=== PATIENT | male | born 2000 | race Two or more races ===

== ENCOUNTER 2021-12-11 14:07 | Outpatient (REF) | payer OTHER, SELFPAY ==
[2021-12-11 14:44] LABS: COVID-19 Test Positive (Negative); IDNOW Serial# 08D9AD1C
== END 2021-12-11 14:08 | disposition home or self-care (01) ==
LOC: HO.LAB 14:07
PROVIDERS: Visit Provider Internal Medicine
DX: Z20.822 Contact with and (suspected) exposure to COVID-19 (principal)
CPT/HCPCS: 87635; C9803